=== PATIENT | male | born 1995 | race Caucasian/White ===

== ENCOUNTER 2021-03-06 13:49 | Emergency (ER) | payer MEDICAID, OTHER ==
[~2021-03-06] VITALS: Ht 170.2 cm; Wt 77.1 kg
[2021-03-06 15:03] VITALS: BP 154/95
[2021-03-06] MEDS ORDERED: CLIN300C8 PO (15:22)
[2021-03-06] MEDS ORDERED: IBUP800T27 PO (15:22)
== END 2021-03-06 15:30 | disposition home or self-care (01) ==
LOC: ER 13:49
DX: K04.7 Periapical abscess without sinus (principal); F17.210 Nicotine dependence, cigarettes, uncomplicated; F12.10 Cannabis abuse, uncomplicated